=== PATIENT | female | born 1950 | race Caucasian/White ===

== ENCOUNTER 2018-07-15 10:35 | Emergency (ER) | payer OTHER, SELFPAY ==
[2018-07-15 10:41] VITALS: BP 131/103; PULSE 106; RESP 20; TEMP 36.6; O2SAT 93
--- NOTE | 2018-07-15 10:47 | W.ED.GENAD ---
Discharge Plan Disposition Patient Disposition: HOME Condition: Improving Discharge Details Chief Complaint: RespSymp Clinical Impression: Acute bronchitis with bronchospasm Primary Care Provider: Julio C Galarza ED Provider: Nishant Garcia Home Meds and New Rx's Prescriptions: New prednisone 20 mg tablet 40 mg PO DAILY 5 Days Qty: 10 RF: 0 doxycycline hyclate 100 mg capsule 100 mg PO BID 10 Days Qty: 20 RF: 0 Continued ibuprofen 200 MG tablet 600 mg PO PRN RF: 0 ProAir HFA 8.5 GM HFA aerosol inhaler 2 puff Inhalation Q4H PRN Qty: 3 RF: 6 calcium carbonate 500 MG tablet,chewable 500 mg PO DAILY RF: 0 montelukast 10 mg tablet 10 mg PO QPM Qty: 90 RF: 3 fluticasone 50 mcg/actuation spray,suspension 2 spray NS DAILY Qty: 3 RF: 3 amitriptyline 100 mg tablet 50 mg PO DAILY Qty: 90 RF: 3 donepezil [Aricept] 5 mg tablet 5 mg PO DAILY RF: 0 omeprazole 40 mg capsule,delayed release(DR/EC) 40 mg PO BID 90 Days Qty: 180 RF: 3 gabapentin 300 MG capsule 300 mg PO BID RF: 0 Discharge Instructions Instructions: Acute Bronchitis (ED) Additional Instructions: Do not take antibiotic with your calcium supplement. Take prednisone and antibiotic as prescribed. Followup with regular doctor for recheck in 7-10 days.. Medical Decision Making 68-year-old female with a history of COPD presents with cough and congestion with increased wheeze over 10-14 days time. She is afebrile and well-appearing with room air oxygenation 92% but exam does reveal bilateral end expiratory wheeze. Patient given DuoNeb updraft and referred for chest XR. Okay x-ray without focal infiltrate. She is improved following updraft We will treat for bronchitis with bronchospasm & will place on burst of steroid and Azithromycin given her allergy profile. She understands homecare as well as return precautions which were discussed with the patient and her at the bedside prior to DC. HPI General Mode of arrival: ambulatory. Date/Time Provider Initiated Documentation: 07/15/18 10:42. Limitations to Documentation: no limitations. Information obtained by: patient and family. History of Present Illness 68 year old F presents to the emergency department with the chief complaint of Cough and shortness of breath for 2, described as moderate, Quality is described as dull and constant, and is localized to the chest. Patient reports no radiation. Patient started experiencing this day(s) and it has been constant. No relieving factors improve symptom(s), No exacerbating factors reported . Patient notes cough and other (We). Patient did receive the following treatments prior to arrival, other (Home medication) Related Data Home Medications Medication Instructions Recorded Confirmed ibuprofen 600 mg PO PRN tab 01/05/16 07/15/18 ProAir HFA 2 puff INHALATION Q4H PRN #3 07/25/17 07/15/18 inhaler calcium carbonate 500 mg PO DAILY tab.chew 12/20/17 07/15/18 montelukast 10 mg tablet 10 mg PO QPM #90 tab 01/26/18 07/15/18 fluticasone 50 mcg/actuation nasal 2 spray NS DAILY #3 unit 02/22/18 07/15/18 spray,suspension amitriptyline 100 mg tablet 50 mg PO DAILY #90 tab 02/28/18 07/15/18 donepezil 5 mg tablet 5 mg PO DAILY 02/28/18 07/15/18 omeprazole 40 mg capsule,delayed 40 mg PO BID 90 Days #180 tab-cap 04/20/18 07/15/18 release doxycycline hyclate 100 mg PO BID 10 Days #20 cap 07/15/18 gabapentin 300 mg PO BID 07/15/18 07/15/18 prednisone 40 mg PO DAILY 5 Days #10 tab 07/15/18 Previous Rx's Medication Instructions Recorded ProAir HFA 2 puff INHALATION Q4H PRN #3 07/25/17 inhaler montelukast 10 mg tablet 10 mg PO QPM #90 tab 01/26/18 fluticasone 50 mcg/actuation nasal 2 spray NS DAILY #3 unit 02/22/18 spray,suspension omeprazole 40 mg capsule,delayed 40 mg PO BID 90 Days #180 tab-cap 04/20/18 release doxycycline hyclate 100 mg PO BID 10 Days #20 cap 07/15/18 prednisone 40 mg PO DAILY 5 Days #10 tab 07/15/18 Allergies Allergy/AdvReac Type Severity Reaction Status Date / Time Penicillins Allergy Intermediate Verified 07/15/18 10:44 flunisolide Allergy Unknown Verified 07/15/18 10:44 ipratropium Allergy Unknown Verified 07/15/18 10:44 levofloxacin Allergy Unknown Verified 07/15/18 10:44 morphine Allergy Unknown pt is not Verified 07/15/18 10:44 sure what happens if she takes morphine Sulfa (Sulfonamide Allergy Unknown Verified 07/15/18 10:44 Antibiotics) terbinafine Allergy Unknown Verified 07/15/18 10:44 trazodone Allergy Unknown Verified 07/15/18 10:44 cyclobenzaprine HCl 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 07/15/18 10:44 [From Flexeril] CONFUSION fluticasone furoate AdvReac Intermediate increased Verified 07/15/18 10:44 [From Breo Ellipta] wheeze vilanterol trifenatate AdvReac Intermediate increased Verified 07/15/18 10:44 [From Breo Ellipta] wheeze budesonide [From Symbicort] AdvReac Mild C/O Verified 07/15/18 10:44 BLURRED VISION formoterol fumarate AdvReac Mild C/O Verified 07/15/18 10:44 [From Symbicort] BLURRED VISION tramadol HCl [From Ultram] AdvReac Unknown PANIC Verified 07/15/18 10:44 ATTACK cerbinafine HCL Allergy Intermediate Uncoded 07/15/18 10:44 canine proteins Allergy Unknown Uncoded 07/15/18 10:44 cats Allergy Unknown Uncoded 07/15/18 10:44 SYMPATHOMIMETIC AGENTS Allergy Unknown Uncoded 07/15/18 10:44 General Stated Complaint: RespSymp SILVIANO: 3 Review of Systems Review of Systems 8 systems reviewed and otherwise neg PFSH Medical History Asthma Gastroesophageal reflux disease Migraine Nephrolithiasis (10/10/15) Obesity Polyp of colon diverticulosis Surgical History Appendectomy Colonoscopy - IV Sedation (04/25/03) Cystoscopy (11/09/15) Cystoscopy (12/25/15) Dilation and curettage Endoscopic Carpal Tunnel release Hernia Repair, Incisional (09/09/10) Release for de Quervain's tenosynovitis of hand Repair of umbilical hernia Repair, Rotator Cuff (~1996) Repair, Rotator Cuff (~2007) Replacement of total knee joint Spinal Fusion TRIPLE ARTHRODESIS (04/17/12) Tonsillectomy and adenoidectomy bilateral breast mass excisions partial plantar fasciectomy L w/excision of painful plantar nodule (11/14/12) tubal ligation Family History Mother Alzheimers disease Father Alzheimers disease [place] (myocardial infarction) Sister No problems noted. Sister No problems noted. Sister No problems noted. Sister No problems noted. Sister No problems noted. Sister No problems noted. Brother No problems noted. Brother No problems noted. Brother No problems noted. Brother No problems noted. Social History household members: spouse housing: house lives independently: Yes current occupational status: retired current gender identity: female what type of physical activity do you participate in: walking frequency: 1-2 times per week duration: 15-30 minutes/day Smoking and Tabacco status: Former Tobacco Use how long ago did patient quit smoking: smoking hx 3ppd [id number] alcohol intake: never History History Para 2 Hx # Term Pregnancies Multiple births Hx # Pregnancies Ectopic pregnancies AB induced Hx Number of Living Children AB spontaneous Exam Narrative Exam Narrative: GEN: awake, alert, oriented 3. Pleasant, well groomed, interactive. HEAD: Normocephalic, atraumatic ENT: Mucous membranes moist, oropharynx unremarkable, External ear exam unremarkable EYES: PERRL, EOMI NECK: Full ROM, no MORRIS, no menigismus CHEST/RESP: Nontender,bilateral end exp wheeze CARDIOVASCULAR: RRR, no murmur, rub trung. 2+ Rad pulse bilateral ABDOMEN: Soft, nontender, no mass. +Bowel sounds EXT: Full ROM, no edema, no rash Neuro: Grossly normal neurologic exam, conversant, interactive. Psych: Speech fluent, thoughts congruent, affect normal Course Vital Signs Temperature 36.6 C 07/15/18 10:41 Pulse 106 H 07/15/18 10:41 Respiratory Rate 20 07/15/18 10:41 Blood Pressure 131/103 H 07/15/18 10:41 Pulse Oximetry 93 L 07/15/18 10:41 Temperature 36.6 C 07/15/18 10:41 Temperature Source Skin 07/15/18 10:41 Pulse 106 H 07/15/18 10:41 Respiratory Rate 20 07/15/18 10:41 Respiratory Effort 07/15/18 10:41 Blood Pressure 131/103 H 07/15/18 10:41 Blood Pressure Position Sitting 07/15/18 10:41 Pulse Oximetry 93 L 07/15/18 10:41 Oxygen Delivery Method Room Air 07/15/18 10:41 Oxygen Flow Rate 0 07/15/18 10:41 Pain Level 8 07/15/18 10:41
--- NOTE | 2018-07-15 10:50 | ED.GENADUL_ITS ---
Discharge Plan Disposition Patient Disposition: HOME Condition: Improving Discharge Details Chief Complaint: RespSymp Clinical Impression: Acute bronchitis with bronchospasm Primary Care Provider: Julio C Galarza ED Provider: Nishant Garcia Home Meds and New Rx's Prescriptions: New prednisone 20 mg tablet 40 mg PO DAILY 5 Days Qty: 10 RF: 0 doxycycline hyclate 100 mg capsule 100 mg PO BID 10 Days Qty: 20 RF: 0 Continued ibuprofen 200 MG tablet 600 mg PO PRN RF: 0 ProAir HFA 8.5 GM HFA aerosol inhaler 2 puff Inhalation Q4H PRN Qty: 3 RF: 6 calcium carbonate 500 MG tablet,chewable 500 mg PO DAILY RF: 0 montelukast 10 mg tablet 10 mg PO QPM Qty: 90 RF: 3 fluticasone 50 mcg/actuation spray,suspension 2 spray NS DAILY Qty: 3 RF: 3 amitriptyline 100 mg tablet 50 mg PO DAILY Qty: 90 RF: 3 donepezil [Aricept] 5 mg tablet 5 mg PO DAILY RF: 0 omeprazole 40 mg capsule,delayed release(DR/EC) 40 mg PO BID 90 Days Qty: 180 RF: 3 gabapentin 300 MG capsule 300 mg PO BID RF: 0 Discharge Instructions Instructions: Acute Bronchitis (ED) Additional Instructions: Do not take antibiotic with your calcium supplement. Take prednisone and antibiotic as prescribed. Followup with regular doctor for recheck in 7-10 days.. Medical Decision Making 68-year-old female with a history of COPD presents with cough and congestion with increased wheeze over 10-14 days time. She is afebrile and well-appearing with room air oxygenation 92% but exam does reveal bilateral end expiratory wheeze. Patient given DuoNeb updraft and referred for chest XR. Okay x-ray without focal infiltrate. She is improved following updraft We will treat for bronchitis with bronchospasm & will place on burst of steroid and Azithromycin given her allergy profile. She understands homecare as well as return precautions which were discussed with the patient and her at the bedside prior to DC. HPI General Mode of arrival: ambulatory . Date/Time Provider Initiated Documentation: 07/15/18 10:42 . Limitations to Documentation: no limitations . Information obtained by: patient and family . History of Present Illness 68 year old F presents to the emergency department with the chief complaint of Cough and shortness of breath for 2, described as moderate, Quality is described as dull and constant, and is localized to the chest. Patient reports no radiation. Patient started experiencing this day(s) and it has been constant. No relieving factors improve symptom(s), No exacerbating factors reported . Patient notes cough and other (We). Patient did receive the following treatments prior to arrival, other (Home medication) Related Data Home Medications Medication Instructions Recorded Confirmed ibuprofen 600 mg PO PRN tab 01/05/16 07/15/18 ProAir HFA 2 puff INHALATION Q4H PRN #3 07/25/17 07/15/18 inhaler calcium carbonate 500 mg PO DAILY tab.chew 12/20/17 07/15/18 montelukast 10 mg tablet 10 mg PO QPM #90 tab 01/26/18 07/15/18 fluticasone 50 mcg/actuation nasal 2 spray NS DAILY #3 unit 02/22/18 07/15/18 spray,suspension amitriptyline 100 mg tablet 50 mg PO DAILY #90 tab 02/28/18 07/15/18 donepezil 5 mg tablet 5 mg PO DAILY 02/28/18 07/15/18 omeprazole 40 mg capsule,delayed 40 mg PO BID 90 Days #180 tab-cap 04/20/18 07/15/18 release doxycycline hyclate 100 mg PO BID 10 Days #20 cap 07/15/18 gabapentin 300 mg PO BID 07/15/18 07/15/18 prednisone 40 mg PO DAILY 5 Days #10 tab 07/15/18 Previous Rx's Medication Instructions Recorded ProAir HFA 2 puff INHALATION Q4H PRN #3 07/25/17 inhaler montelukast 10 mg tablet 10 mg PO QPM #90 tab 01/26/18 fluticasone 50 mcg/actuation nasal 2 spray NS DAILY #3 unit 02/22/18 spray,suspension omeprazole 40 mg capsule,delayed 40 mg PO BID 90 Days #180 tab-cap 04/20/18 release doxycycline hyclate 100 mg PO BID 10 Days #20 cap 07/15/18 prednisone 40 mg PO DAILY 5 Days #10 tab 07/15/18 Allergies Allergy/AdvReac Type Severity Reaction Status Date / Time Penicillins Allergy Intermediate Verified 07/15/18 10:44 flunisolide Allergy Unknown Verified 07/15/18 10:44 ipratropium Allergy Unknown Verified 07/15/18 10:44 levofloxacin Allergy Unknown Verified 07/15/18 10:44 morphine Allergy Unknown pt is not Verified 07/15/18 10:44 sure what happens if she takes morphine Sulfa (Sulfonamide Allergy Unknown Verified 07/15/18 10:44 Antibiotics) terbinafine Allergy Unknown Verified 07/15/18 10:44 trazodone Allergy Unknown Verified 07/15/18 10:44 cyclobenzaprine HCl AdvReac Intermediate 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 07/15/18 10:44 [From Flexeril] CONFUSION fluticasone furoate AdvReac Intermediate increased Verified 07/15/18 10:44 [From Breo Ellipta] wheeze vilanterol trifenatate AdvReac Intermediate increased Verified 07/15/18 10:44 [From Breo Ellipta] wheeze budesonide [From Symbicort] AdvReac Mild C/O Verified 07/15/18 10:44 BLURRED VISION formoterol fumarate AdvReac Mild C/O Verified 07/15/18 10:44 [From Symbicort] BLURRED VISION tramadol HCl [From Ultram] AdvReac Unknown PANIC Verified 07/15/18 10:44 ATTACK cerbinafine HCL Allergy Intermediate Uncoded 07/15/18 10:44 canine proteins Allergy Unknown Uncoded 07/15/18 10:44 cats Allergy Unknown Uncoded 07/15/18 10:44 SYMPATHOMIMETIC AGENTS Allergy Unknown Uncoded 07/15/18 10:44 General Stated Complaint: RespSymp SILVIANO: 3 Review of Systems Review of Systems 8 systems reviewed and otherwise neg PFSH Medical History Asthma Gastroesophageal reflux disease Migraine Nephrolithiasis (10/10/15) Obesity Polyp of colon diverticulosis Surgical History Appendectomy Colonoscopy - IV Sedation (04/25/03) Cystoscopy (11/09/15) Cystoscopy (12/25/15) Dilation and curettage Endoscopic Carpal Tunnel release Hernia Repair, Incisional (09/09/10) Release for de Quervain's tenosynovitis of hand Repair of umbilical hernia Repair, Rotator Cuff (~1996) Repair, Rotator Cuff (~2007) Replacement of total knee joint Spinal Fusion TRIPLE ARTHRODESIS (04/17/12) Tonsillectomy and adenoidectomy bilateral breast mass excisions partial plantar fasciectomy L w/excision of painful plantar nodule (11/14/12) tubal ligation Family History Mother Alzheimers disease Father Alzheimers disease [place] (myocardial infarction) Sister No problems noted. Sister No problems noted. Sister No problems noted. Sister No problems noted. Sister No problems noted. Sister No problems noted. Brother No problems noted. Brother No problems noted. Brother No problems noted. Brother No problems noted. Social History household members: spouse housing: house lives independently: Yes current occupational status: retired current gender identity: female what type of physical activity do you participate in: walking frequency: 1-2 times per week duration: 15-30 minutes/day Smoking and Tabacco status: Former Tobacco Use how long ago did patient quit smoking: smoking hx 3ppd [id number] alcohol intake: never History History Para 2 Hx # Term Pregnancies Multiple births Hx # Pregnancies Ectopic pregnancies AB induced Hx Number of Living Children AB spontaneous Exam Narrative Exam Narrative: GEN: awake, alert, oriented 3. Pleasant, well groomed, interactive. HEAD: Normocephalic, atraumatic ENT: Mucous membranes moist, oropharynx unremarkable, External ear exam unremarkable EYES: PERRL, EOMI NECK: Full ROM, no MORRIS, no menigismus CHEST/RESP: Nontender,bilateral end exp wheeze CARDIOVASCULAR: RRR, no murmur, rub trung. 2+ Rad pulse bilateral ABDOMEN: Soft, nontender, no mass. +Bowel sounds EXT: Full ROM, no edema, no rash Neuro: Grossly normal neurologic exam, conversant, interactive. Psych: Speech fluent, thoughts congruent, affect normal Course Vital Signs Temperature 36.6 C 07/15/18 10:41 Pulse 106 H 07/15/18 10:41 Respiratory Rate 20 07/15/18 10:41 Blood Pressure 131/103 H 07/15/18 10:41 Pulse Oximetry 93 L 07/15/18 10:41 Temperature 36.6 C 07/15/18 10:41 Temperature Source Skin 07/15/18 10:41 Pulse 106 H 07/15/18 10:41 Respiratory Rate 20 07/15/18 10:41 Respiratory Effort 07/15/18 10:41 Blood Pressure 131/103 H 07/15/18 10:41 Blood Pressure Position Sitting 07/15/18 10:41 Pulse Oximetry 93 L 07/15/18 10:41 Oxygen Delivery Method Room Air 07/15/18 10:41 Oxygen Flow Rate 0 07/15/18 10:41 Pain Level 8 07/15/18 10:41
--- NOTE | 2018-07-15 10:52 | DI.RAD_ITS ---
SYMPTOM/DIAGNOSIS: COUGH, CONGESTION PA AND LATERAL CHEST: Comparison is made with 11/08/15. The heart size is normal. The aorta is mildly tortuous but normal in diameter. The lungs are clear. No infiltrate or effusion is seen. Degenerative changes are noted in the spine. IMPRESSION: No acute abnormality.
[2018-07-15 11:01] VITALS: RESP 4
[2018-07-15] MEDS: Albuterol/Ipratropium 3 ML UPD VIAL (11:01)
[2018-07-15] MEDS: predniSONE 20 MG TAB 60 MG PO (11:01)
--- NOTE | 2018-07-15 11:42 | DI.VRAD_ITS ---
EXAM: XR Chest, 2 Views EXAM DATE/TIME: 07/15/2018 11:25 AM CLINICAL HISTORY: 68 years old, female; Signs and symptoms; Cough TECHNIQUE: XR of the chest, 2 views. COMPARISON: CR CHEST 2 VIEWS PA,LAT 11/08/2015 9:42 AM FINDINGS: Lungs: Stable mild COPD . Pleural space: Unremarkable. No pleural effusion. No pneumothorax. Heart/Mediastinum: Unremarkable. No cardiomegaly. Bones/joints: Stable postoperative changes over the right shoulder. Stable postoperative changes over the left shoulder. Mild thoracic spondylosis. IMPRESSION: Stable mild COPD . Dictated and Authenticated by: Bronson Nielsen MD. Ordering:CAL Dillard MD
[2018-07-15 11:59] VITALS: PULSE 96; RESP 18; TEMP 36.6; O2SAT 94
== END 2018-07-15 12:02 | disposition home or self-care (01) ==
LOC: ER 11:02
PROVIDERS: Emergency Provider Emergency Medicine; PCP Family Medicine
DX: J44.0 Chronic obstructive pulmonary disease with (acute) lower respiratory infection (principal); J20.9 Acute bronchitis, unspecified; J45.909 Unspecified asthma, uncomplicated; Z87.891 Personal history of nicotine dependence
CPT/HCPCS: 94640; 99283; 71046; J7512; J7620

== ENCOUNTER 2018-08-04 01:53 | Outpatient (CLI) | payer OTHER, SELFPAY ==
--- NOTE | 2018-08-04 14:15 | MERGE_ITS ---
*[facility]* *[facility]* [address] [place] [address] Date of study: 08/04/2018 Transthoracic Echocardiography M-mode, complete 2D, complete spectral Doppler, and color Doppler *STUDY CONCLUSIONS* Summary: 1. Left ventricle: The cavity size was normal. Wall thickness was increased in a pattern of mild LVH. Systolic function was hyperdynamic. The estimated ejection fraction was 65-70%. There was mild dynamic obstruction during Valsalva in the outflow tract, with a peak gradient of 19mm Hg. Wall motion was normal; there were no regional wall motion abnormalities. Findings consistent with diastolic dysfunction. There was no evidence of elevated ventricular filling pressure by Doppler parameters. 2. Aortic valve: Trileaflet; normal thickness leaflets. 3. Ascending aorta: The ascending aorta was mildly dilated. 4. Right ventricle: The cavity size was normal. Wall thickness was normal. Systolic function was normal. *PATIENT PRESENTATION* Height: 144.8cm ((57in) ) S/D Pressure: 1049 / 84 Weight: 97.1kg ((213.6lb) ) BSA: 2.04m^2 Test start time: 02:30 PM. Test stop time: 03:30 PM. PERFORMING Unknown PERFORMING [facility] PORT CRANE OPERATOR Jolene Caldwell RT (R)(CT), [facility] ORDERING Julio C Galarza REFERRING Julio C Galarza *PROCEDURE DATA* Procedure information: The patient was identified by two identifiers. This study was interpreted by [facility]. Pertinent images and digital data are archived for permanent storage and are available for subsequent review. No prior study was available for comparison. Study status: Routine. Transthoracic echocardiography. M-mode, complete 2D, complete spectral Doppler, and color Doppler. A Transthoracic Echocardiogram was performed. Scanning was performed from the parasternal, apical, subcostal, and suprasternal notch acoustic windows. Images were obtained using an [id number] cardiac ultrasound machine. Image quality was adequate. Study completion: The patient tolerated the procedure well. There were no complications. History: PMH: Chronic SOB. equivacable PFTs. dyspnea. R06.09 GARCÍA. *CARDIAC ANATOMY* Left ventricle: The cavity size was normal. Wall thickness was increased in a pattern of mild LVH. Systolic function was hyperdynamic. The estimated ejection fraction was 65-70%. There was mild dynamic obstruction during Valsalva in the outflow tract, with a peak gradient of 19mm Hg. Wall motion was normal; there were no regional wall motion abnormalities. Findings consistent with diastolic dysfunction. There was no evidence of elevated ventricular filling pressure by Doppler parameters. Aortic valve: Trileaflet; normal thickness leaflets. Mobility was not restricted. Doppler: Transvalvular velocity was within the normal range. There was no stenosis. There was no significant regurgitation. VTI ratio of LVOT to aortic valve: 0.83. Valve area (VTI): 2.2cm^2. Indexed valve area (VTI): 1.1cm^2/m^2. Peak velocity ratio of LVOT to aortic valve: 0.76. Valve area (Vmax): 2cm^2. Indexed valve area (Vmax): 1cm^2/m^2. Mean velocity ratio of LVOT to aortic valve: 0.83. Valve area (Vmean): 2.2cm^2. Indexed valve area (Vmean): 1.1cm^2/m^2. Mean gradient (S): 4.9mm Hg. Peak gradient (S): 8.9mm Hg. Aorta: Aortic root: The aortic root was normal in size. Ascending aorta: The ascending aorta was mildly dilated. Aortic arch: The aortic arch was normal in size. Mitral valve: Structurally normal valve. Mobility was not restricted. Doppler: Transvalvular velocity was within the normal range. There was no evidence for stenosis. There was no significant regurgitation. Valve area by pressure half-time: 4.1cm^2. Indexed valve area by pressure half-time: 2cm^2/m^2. Left atrium: The atrium was normal in size. Right ventricle: The cavity size was normal. Wall thickness was normal. Systolic function was normal. Pulmonic valve: The pulmonary valve appears to be grossly normal. Doppler: Transvalvular velocity was within the normal range. There was no evidence for stenosis. There was no significant regurgitation. Peak gradient (S): 4.8mm Hg. Tricuspid valve: Structurally normal valve. Doppler: Transvalvular velocity was within the normal range. There was no evidence for stenosis. There was no significant regurgitation. Pulmonary artery: Systolic pressure could not be accurately estimated. Right atrium: The atrium was normal in size. Pericardium: There was no pericardial effusion. Systemic veins: Inferior vena cava: Well visualized. The vessel was small, appearing collapsed, consistent with low central venous pressure. The respirophasic diameter changes were in the normal range (greater than or equal to 50%). Baseline ECG: Normal sinus rhythm. Measurements Left ventricle Value Reference LV ID, ED, PLAX 4.0 cm 3.5 - 6.0 LV ID, ES, PLAX 2.2 cm 2.1 - 4.0 LV PW thickness, ED, PLAX 1.1 cm LV end-diastolic volume, 1-p A2C 67 ml LV ejection fraction, 1-p A2C 80 % LV end-diastolic volume, 1-p A4C 63 ml LV ejection fraction, 1-p A4C 70 % LV e', lateral 0.084 m/sec LV E/e', lateral 7 LV e', medial 0.054 m/sec LV E/e', medial 11 LV e', average 0.069 m/sec LV E/e', average 8 Ventricular septum Value Reference IVS thickness, ED, PLAX 1.3 cm LVOT Value Reference LVOT ID, A-P 1.8 cm LVOT area 2.6 cm^2 LVOT peak velocity, S 1.13 m/sec LVOT mean velocity, S 0.88 m/sec LVOT VTI, S 19.1 cm LVOT peak gradient, S 5.1 mm Hg LVOT mean gradient, S 3.3 mm Hg Stroke volume (SV), LVOT DP 50 ml Stroke index (SV/bsa), LVOT DP 25 ml/m^2 Aortic valve Value Reference Aortic valve peak velocity, S 1.5 m/sec Aortic valve mean velocity, S 1.06 m/sec Aortic valve VTI, S 23.0 cm Aortic mean gradient, S 4.9 mm Hg Aortic peak gradient, S 8.9 mm Hg VTI ratio, LVOT/AV 0.83 Aortic valve area, VTI 2.2 cm^2 Velocity ratio, peak, LVOT/AV 0.76 Aortic valve area, peak velocity 2 cm^2 Velocity ratio, mean, LVOT/AV 0.83 Aortic valve area, mean velocity 2.2 cm^2 Aortic valve area/bsa, mean velocity 1.1 cm^2/m^2 Aorta Value Reference Aortic root ID, ED 3.6 cm Ascending aorta ID, A-P, S 3.8 cm Left atrium Value Reference LA ID, A-P, ES 2.6 cm LA ID/bsa, A-P 1.3 cm/m^2 <=2.2 LA area, ES, A4C 12.8 cm^2 8.8 - 23.4 LA area, ES, A2C 15 cm^2 LA volume/bsa, ES, 1-p A4C 17 ml/m^2 LA volume, ES, 2-p 34 ml LA volume/bsa, ES, 2-p 17 ml/m^2 LA/aortic root ratio 0.73 Mitral valve Value Reference Mitral E-wave peak velocity 0.57 m/sec Mitral A-wave peak velocity 0.92 m/sec Mitral deceleration time 184 ms 150 - 230 Mitral pressure half-time 53 ms Mitral E/A ratio, peak 0.62 Mitral valve area, PHT, DP 4.1 cm^2 Tricuspid valve Value Reference Tricuspid regurg peak velocity 3.5 m/sec Tricuspid peak RV-RA gradient 47.7 mm Hg Right atrium Value Reference RA area, ES, A4C 13.7 cm^2 8.3 - 19.5 Pulmonic valve Value Reference Pulmonic peak gradient, S 4.8 mm Hg Legend: (L) and (H) jonathan values outside specified reference range. I have personally reviewed the images and have reviewed and edited the reported findings. Electronically signed by Thierno Wilson 08/04/2018 15:59
== END 2018-08-04 02:13 ==
PROVIDERS: PCP Family Medicine; Visit Provider Family Medicine
DX: R06.02 Shortness of breath (principal); R06.09 Other forms of dyspnea; I50.30 Unspecified diastolic (congestive) heart failure; J44.9 Chronic obstructive pulmonary disease, unspecified
CPT/HCPCS: 93306

== ENCOUNTER 2018-08-08 10:20 | Outpatient (CLI) | payer OTHER, SELFPAY ==
[2018-08-08 11:37] LABS: Anion Gap 8.7 mmol/L (3-11); BUN 14 mg/dL (7-18); CO2 31.3 mmol/L (21.0-32.0); CREATININE 0.95 mg/dL (0.55-1.02); Calcium 9.5 mg/dL (8.5-10.1); Chloride 103 mmol/L (98-107); Estimated GFR 58.33 (mL/min/1.73m2); Glucose 121 mg/dL (70-100); Potassium 4.3 mmol/L (3.5-5.1); Sodium 143 mmol/L (136-145)
== END 2018-08-08 10:40 ==
PROVIDERS: PCP Family Medicine; Visit Provider Family Medicine
DX: R73.09 Other abnormal glucose (principal); R06.09 Other forms of dyspnea
CPT/HCPCS: 36415; 80048

== ENCOUNTER 2018-08-16 12:11 | Outpatient (RCR) | payer SELFPAY | END 2018-08-20 23:59 | disposition home or self-care (01) | LOC: CR 12:11 | PROVIDERS: PCP Family Medicine; Visit Provider Family Medicine | DX: Z51.89 Encounter for other specified aftercare (principal) ==

== ENCOUNTER 2018-08-29 00:44 | Outpatient (CLI) | payer OTHER, SELFPAY ==
--- NOTE | 2018-08-29 10:28 | DI.MAMMO_ITS ---
SYMPTOM/DIAGNOSIS: SCREENING, Z12.31 MAMMOGRAMS: Mammograms were interpreted according to the usual protocol including computer analysis with CAD system, tomosynthesis and C view imaging. Comparison is made with prior examinations. Breast density, Category A. No suspicious masses or microcalcifications are seen. There is no definite evidence of malignancy. IMPRESSION: Negative mammogram. Routine screening is recommended. Category 1. MQSA ASSESSMENT OF FINDINGS: Negative. Category 1. Patient will receive a letter notifying them of these results. BI-RAD category A. The breasts are almost entirely fatty.
== END 2018-08-29 01:04 ==
PROVIDERS: PCP Family Medicine; Visit Provider Family Medicine
DX: Z12.31 Encounter for screening mammogram for malignant neoplasm of breast (principal)
CPT/HCPCS: 77063; 77067

== ENCOUNTER 2018-09-19 10:00 | Outpatient (RCR) | payer SELFPAY ==
--- NOTE | 2018-08-22 10:00 | PR3E_ITS ---
Angelica Diallo is a 68 year old female referred to the cardiac rehabilitation maintenance exercise program by her primary provider, at [facility]. PMH: Migraines, Metabolic sybdrome, Kindney stones, neuropathy, GERD, ventral hernia, diabetes, insomnia, obesity, intrinsic asthma, memory disturbance Orthopedic history: bilateral rotator cuffs, bilateral joint replacements in knees, osteoarthrosis, wears orthodics Cardiac risk factors: +Age, +family history, +remote smoking history, +obesity, +sedentary lifestyle, +Diabetes Patient presented on 08/17/2018 with her for a pre program intake. Program consents and expectations were reviewed and signed by patients and her . She was alert and oriented at this time, she reported issues with short term memory at baseline. Her color was WNL, lungs clear bilaterally to posterior auscultation, heart sounds regular s1/s2 and baseline 1+ lower extremity edema was noted. Height 55in., weight 217 lbs, BMI 50.4, BP 121/79, HR 91, oxygen saturation 91% on room air. First day of exercise: 08/22/18. Resting vital signs: BP 125/710, HR 106, weight 216 lbs. She appropriately tolerated 20 minutes of exercise in 5 minute increments on the treadmill, NuStep, and arm bike. Vital signs with exercise 116-155/76-80, HR 100-106 bpm. CARMEN RPE ratings were 11-15. Will provide frequent and continuous assistance to patient as she will need help completing her daily exercise sheets. Will encourage continued progression with exercise as tolerated and exercise at home.
== END 2018-09-19 23:59 | disposition home or self-care (01) ==
LOC: CR 10:00
PROVIDERS: PCP Family Medicine; Visit Provider Family Medicine
DX: Z51.89 Encounter for other specified aftercare (principal)

== ENCOUNTER 2018-10-19 13:34 | Outpatient (RCR) | payer SELFPAY | END 2018-10-20 23:59 | disposition home or self-care (01) | LOC: CR 13:34 | PROVIDERS: PCP Family Medicine; Visit Provider Family Medicine | DX: Z51.89 Encounter for other specified aftercare (principal) ==

== ENCOUNTER 2018-11-16 11:25 | Outpatient (RCR) | payer SELFPAY | END 2018-11-19 23:59 | disposition home or self-care (01) | LOC: CR 11:25 | PROVIDERS: PCP Family Medicine; Visit Provider Family Medicine | DX: Z51.89 Encounter for other specified aftercare (principal) ==

== ENCOUNTER 2018-12-19 13:27 | Outpatient (RCR) | payer SELFPAY | END 2018-12-20 23:59 | disposition home or self-care (01) | LOC: CR 13:27 | PROVIDERS: PCP Family Medicine; Visit Provider Family Medicine | DX: Z51.89 Encounter for other specified aftercare (principal) ==

== ENCOUNTER 2019-01-18 10:00 | Outpatient (RCR) | payer SELFPAY | END 2019-01-20 23:59 | disposition home or self-care (01) | LOC: CR 10:00 | PROVIDERS: PCP Family Medicine; Visit Provider Family Medicine | DX: Z51.89 Encounter for other specified aftercare (principal) ==

== ENCOUNTER 2019-02-15 11:57 | Outpatient (RCR) | payer SELFPAY | END 2019-02-19 23:59 | disposition home or self-care (01) | LOC: CR 11:57 | PROVIDERS: PCP Family Medicine; Visit Provider Family Medicine | DX: Z51.89 Encounter for other specified aftercare (principal) ==

== ENCOUNTER 2019-03-06 09:00 | Outpatient (RCR) | payer SELFPAY | END 2019-03-22 23:59 | disposition home or self-care (01) | LOC: CR 09:00 | PROVIDERS: PCP Family Medicine; Visit Provider Family Medicine | DX: Z51.89 Encounter for other specified aftercare (principal) ==

== ENCOUNTER 2019-03-08 17:29 | Emergency (ER) | payer OTHER, SELFPAY ==
[2019-03-08 17:35] VITALS: BP 146/97; PULSE 81; RESP 16; TEMP 37; O2SAT 95
--- NOTE | 2019-03-08 17:47 | ED.GENADUL_ITS ---
Discharge Plan Disposition Patient Disposition: HOME Condition: Stable Discharge Details Chief Complaint: Nk/Back Pain Clinical Impression: Sciatica Primary Care Provider: Julio C Galarza ED Provider: Bronson Bojorquez Home Meds and New Rx's Prescriptions: New diazepam [Valium] 2 mg tablet 2 mg PO TID PRN (Reason: muscle spasm) Qty: 20 RF: 0 Continued fluticasone propion-salmeterol [Advair Diskus] 250-50 mcg/dose blister with device 1 inh IH Q12H Qty: 60 RF: 6 codeine-guaifenesin 10-100 mg/5 mL liquid 10 ml PO Q6H PRN (Reason: cough) Qty: 118 RF: 0 ibuprofen 200 MG tablet 600 mg PO PRN RF: 0 calcium carbonate 500 MG tablet,chewable 500 mg PO DAILY RF: 0 albuterol sulfate [ProAir HFA] 90 mcg/actuation HFA aerosol inhaler 2 puff Inhalation Q4H PRN Qty: 3 RF: 6 gabapentin 300 mg capsule 300 mg PO BID Qty: 180 RF: 3 fluticasone propionate 50 mcg/actuation spray,suspension 2 spray NS DAILY Qty: 3 RF: 3 montelukast 10 mg tablet 10 mg PO QPM Qty: 90 RF: 3 omeprazole 40 mg capsule,delayed release(DR/EC) 40 mg PO BID 90 Days Qty: 180 RF: 3 amitriptyline 100 mg tablet 25 mg PO DAILY Qty: 90 RF: 3 donepezil [Aricept] 5 mg tablet 5 mg PO DAILY Qty: 90 RF: 3 Discharge Instructions Instructions: Sciatica (ED) Additional Instructions: try using over the counter lidocaine patches follow up with your primary care provider within 1-2 weeks if you develop difficulty urinating, fevers or severe worsening of pain return to the emergency department Medical Decision Making 68 yo female comes in with one week of nontraumatic low back pain. She states it started one day without falls and has had shooting sensation down the posterior left leg. Denies fevers, difficulty urinating, weakness. She has painin left lumbar area with no saddle anesthesia, no midline pain, no cva tenderness, no weakness in the legs with normal senstaion and pulses. No findings on history or physical exam to suggest cauda equina or sea so do not feel emergent mri indicated. given lack of falls/trauma do not feel xray/ct indicated and has no infectious symptoms to suggest osteo. Her exam is consistent with either lumbar strain vs sciatica. will have her start muscle relaxers prn and lidocaine patches, advised f/u with pcp and return precautions given Differential Diagnosis Differential Diagnosis: back strain, muscle spasm, sciatica HPI General Mode of arrival: wheelchair . Date/Time Provider Initiated Documentation: 03/08/19 17:30 . Limitations to Documentation: no limitations . Information obtained by: patient . History of Present Illness 68 year old F presents to the emergency department with the chief complaint of low back pain, described as moderate, Quality is described as stabbing and aching, and is localized to the back. Patient started experiencing this week(s) (1) and it has been constant. No relieving factors improve symptom(s), No exacerbating factors reported . Patient did receive the following treatments prior to arrival, NSAID Related Data Home Medications Medication Instructions Recorded Confirmed ibuprofen 600 mg PO PRN tab 01/05/16 03/08/19 calcium carbonate 500 mg PO DAILY tab.chew 12/20/17 03/08/19 codeine 10 mg-guaifenesin 100 mg/5 10 ml PO Q6H PRN #118 ml 07/18/18 03/08/19 mL oral liquid albuterol sulfate 90 mcg/actuation 2 puff INHALATION Q4H PRN #3 10/03/18 03/08/19 aerosol inhaler inhaler gabapentin 300 mg capsule 300 mg PO BID #180 cap 10/09/18 03/08/19 fluticasone propionate 50 2 spray NS DAILY #3 unit 01/04/19 03/08/19 mcg/actuation nasal spray,suspension montelukast 10 mg tablet 10 mg PO QPM #90 tab 01/04/19 03/08/19 omeprazole 40 mg capsule,delayed 40 mg PO BID 90 Days #180 tab-cap 01/04/19 03/08/19 release amitriptyline 100 mg tablet 25 mg PO DAILY #90 tab 01/08/19 03/08/19 donepezil 5 mg tablet 5 mg PO DAILY #90 tab 01/08/19 03/08/19 fluticasone 250 mcg-salmeterol 50 1 inh IH Q12H #60 each 02/08/19 03/08/19 mcg/dose blistr powdr for inhalation diazepam [Valium] 2 mg PO TID PRN #20 tab 03/08/19 Previous Rx's Medication Instructions Recorded codeine 10 mg-guaifenesin 100 mg/5 10 ml PO Q6H PRN #118 ml 07/18/18 mL oral liquid albuterol sulfate 90 mcg/actuation 2 puff INHALATION Q4H PRN #3 10/03/18 aerosol inhaler inhaler gabapentin 300 mg capsule 300 mg PO BID #180 cap 10/09/18 fluticasone propionate 50 2 spray NS DAILY #3 unit 01/04/19 mcg/actuation nasal spray,suspension montelukast 10 mg tablet 10 mg PO QPM #90 tab 01/04/19 omeprazole 40 mg capsule,delayed 40 mg PO BID 90 Days #180 tab-cap 01/04/19 release amitriptyline 100 mg tablet 25 mg PO DAILY #90 tab 01/08/19 donepezil 5 mg tablet 5 mg PO DAILY #90 tab 01/08/19 fluticasone 250 mcg-salmeterol 50 1 inh IH Q12H #60 each 02/08/19 mcg/dose blistr powdr for inhalation diazepam [Valium] 2 mg PO TID PRN #20 tab 03/08/19 Allergies Allergy/AdvReac Type Severity Reaction Status Date / Time Penicillins Allergy Severe listed as Verified 03/08/19 17:38 [place] [facility] [place]a (Sulfonamide Allergy Severe Anaphylaxis Verified 03/08/19 17:38 Antibiotics) per [facility] [place] flunisolide Allergy Unknown unknown Verified 03/08/19 17:38 ipratropium Allergy Unknown Verified 03/08/19 17:38 levofloxacin Allergy Unknown Verified 03/08/19 17:38 morphine Allergy Unknown pt is not Verified 03/08/19 17:38 sure what happens if she takes morphine terbinafine Allergy Unknown unknown Verified 03/08/19 17:38 trazodone Allergy Unknown Verified 03/08/19 17:38 cyclobenzaprine HCl AdvReac Intermediate [employer] Verified 03/08/19 17:38 [From Flexeril] CONFUSION fluticasone furoate AdvReac Intermediate increased Verified 03/08/19 17:38 [From Breo Ellipta] wheeze vilanterol trifenatate AdvReac Intermediate increased Verified 03/08/19 17:38 [From Breo Ellipta] wheeze budesonide [From Symbicort] AdvReac Mild C/O Verified 03/08/19 17:38 BLURRED VISION formoterol fumarate AdvReac Mild C/O Verified 03/08/19 17:38 [From Symbicort] BLURRED VISION tramadol HCl [From Ultram] AdvReac Unknown PANIC Verified 03/08/19 17:38 ATTACK cerbinafine HCL Allergy Intermediate unknown Uncoded 03/08/19 17:38 canine proteins Allergy Unknown unknown Uncoded 03/08/19 17:38 cats Allergy Unknown unknown Uncoded 03/08/19 17:38 SYMPATHOMIMETIC AGENTS Allergy Unknown unknown Uncoded 03/08/19 17:38 General Stated Complaint: Nk/Back Pain SILVIANO: 4 Review of Systems Review of Systems ROS Unobtainable: All systems reviewed & are unremarkable except as noted in HPI and below Constitutional Constitutional: Denies chills, Denies fever(s) and Denies weakness Cardiovascular Cardiovascular: Denies chest pain and Denies dyspnea Respiratory Respiratory: Denies cough and Denies dyspnea Gastrointestinal Gastrointestinal: Denies abdominal pain, Denies nausea and Denies vomiting Musculoskeletal Musculoskeletal: Denies joint swelling Neurologic Neurologic: Denies weakness [facility] Medical History (Updated 02/08/19 @ 08:31 by Julio C Galarza DO) Asthma Asthma, mild intermittent, well-controlled (Chronic) h/o 3 PPD, STOPPED SMOKING 1973; NO WHEEZING Last PFTs : normal, no chg bronchodilator; sl incr DLCO, ?due to GERD; worse with URI, cold weather, hot weather Asthma, moderate persistent (Acute) Disturbance of memory (Chronic 03/29/17) MOCA 18 (03/2017) diverticulosis Gastroesophageal reflux disease GERD (gastroesophageal reflux disease) (Chronic 04/15/14) with laryngeal inflammation, hoarseness, ENT FA Idiopathic peripheral neuropathy (Chronic 09/14/11) Intrinsic asthma, unspecified (Chronic) h/o 3 PPD, STOPPED SMOKING 1973; NO WHEEZING Last PFTs : normal, no chg bronchodilator; sl incr DLCO, ?due to GERD Kidney stone on left side (Chronic 11/21/15) [place] [facility] [place], 11/27/15, stent 12/25/15; CaOxalate Monophosphate Metabolic syndrome X (Chronic 09/14/11) Migraine Migraine, unspecified, not intractable, without status migrainosus (Chronic 09/14/11) Dr Pizarro [facility] [place] Morbid obesity (Chronic 06/23/11) Nephrolithiasis (10/10/15) Obesity Pes planus of both feet (Chronic 03/29/16) Polyp of colon TUBULAR ADENOMA Post herpetic neuralgia (Chronic 09/10/16) right face Surgical History (Updated 09/05/18 @ 09:55 by Karen Casas RN) Appendectomy 2006 with hernia repair bilateral breast mass excisions 2010 Colonoscopy - IV Sedation (04/25/03) no polyps 06/13/13-TUBULAR ADENOMA Cystoscopy (11/09/15[place] [facility] [place] placement 11/09/15 Again stent placement 12/24 Cystoscopy (12/25/15) [facility] [place] stent placement 11/09/15 Again stent placement 12/24 Dilation and curettage 1980 Endoscopic Carpal Tunnel release bilateral in 1990 Hernia Repair, Incisional (09/09/10) laparoscopic w/mesh partial plantar fasciectomy L w/excision of painful plantar nodule (11/14/12) Dr Barney Release for de Quervain's tenosynovitis of hand right side 1990 Repair of umbilical hernia 2010 Repair, Rotator Cuff (~1996) left in 2007; R 1996 Repair, Rotator Cuff (~2007) left in 2007; R 1996 Replacement of total knee joint 2000 left knee; 2004 right knee S/P BRENDA (total abdominal hysterectomy) (Resolved) Spinal Fusion thoracic with bone grafting in 1997 Tonsillectomy and adenoidectomy 1969 TRIPLE ARTHRODESIS (04/17/12) AMAIRANI, FOR ADULT FLAT FOOT; Left tubal ligation 1980 Social History (Updated 02/08/19 @ 08:22 by Sera Lyon LPN) Smoking/Tobacco Use Status: Former Tobacco Use Alcohol Intake: never Drug use: Never Household members: spouse Housing: house Current gender identity: female What is your relationship status?: How often do you talk on the phone with friends or family?: three or more times per week Panel score (0-1 are the most socially isolated patients): 2 What type of physical activity do you participate in: none Duration: 60-90 minutes/day Frequency: 1-2 times per week Seatbelt use: always Drive intox or ride w/intox short haul driver: No Working smoke detector in home: Yes Fire extinguisher in home: Yes Carbon monox detector in home: Yes Do you feel safe at home: Yes Do you feel safe in your relationship?: Yes History History Para 2 Hx # Term Pregnancies Multiple births Hx # Pregnancies Ectopic pregnancies AB induced Hx Number of Living Children AB spontaneous Exam Const General: no acute distress Orientation: alert HENMT Head: normal to inspection Ears: external ears normal General nose exam: external nose normal Mouth: moist mucous membranes Eyes General: appearance normal, both eyes and all related structures Neck Neck: normal visual inspection Resp Effort & Inspection: normal respiratory effort and able to speak in complete sentences Cardio Rate: regular rate Back/Spine/Pelvis Back: no CVA tenderness Skin General skin exam: no rashes or lesions noted Neuro General: alert and oriented x3 Extrem General: normal to inspection Psych Mental Status: mental status grossly normal Course Vital Signs Vital signs: Vital Signs Temperature 37.0 C 03/08/19 17:35 Pulse 81 03/08/19 17:35 Respiratory Rate 16 03/08/19 17:35 Blood Pressure 146/97 H 03/08/19 17:35 Pulse Oximetry 95 03/08/19 17:35 Temperature 37.0 C 03/08/19 17:35 Temperature Source Temporal Artery Scan 03/08/19 17:35 Pulse 81 03/08/19 17:35 Respiratory Rate 16 03/08/19 17:35 Respiratory Effort 03/08/19 17:35 Blood Pressure 146/97 H 03/08/19 17:35 Blood Pressure Position Sitting 03/08/19 17:35 Pulse Oximetry 95 03/08/19 17:35 Oxygen Delivery Method Room Air 03/08/19 17:35 Oxygen Flow Rate 0 03/08/19 17:35 Pain Level 10 03/08/19 17:35
[2019-03-08] MEDS: Lidocaine 5% Patch 1 PATCH (17:57)
== END 2019-03-08 18:02 | disposition home or self-care (01) ==
PROVIDERS: Emergency Provider Emergency Medicine; PCP Family Medicine
DX: M54.42 Lumbago with sciatica, left side (principal)
CPT/HCPCS: 99283

== ENCOUNTER 2019-03-23 05:44 | Outpatient (RCR) | payer SELFPAY | END 2019-04-21 23:59 | disposition home or self-care (01) | LOC: CR 05:44 | PROVIDERS: PCP Family Medicine; Visit Provider Family Medicine | DX: Z51.89 Encounter for other specified aftercare (principal) ==

== ENCOUNTER 2019-04-22 23:43 | Outpatient (RCR) | payer SELFPAY ==
--- NOTE | 2019-05-11 12:18 | PR3E_ITS ---
69 year old female joined the maintenance phase of cardiac rehabilitation on August 22, 2018 after being referred for exertional dyspnea and cardiac risk factors: obesity and diabetes. The patient has attended classes August-February. The patient is being discharged from the program at this time due to ongoing medical issues; back pain. Will assist patient in re-enrolling in the program and obtaining proper referrals in the future should she want to return.
== END 2019-05-22 23:59 | disposition home or self-care (01) ==
LOC: CR 23:43
PROVIDERS: PCP Family Medicine; Visit Provider Family Medicine
DX: Z51.89 Encounter for other specified aftercare (principal)

== ENCOUNTER 2019-06-26 15:00 | Outpatient (CLI) | payer OTHER, SELFPAY ==
[2019-06-26 16:24] LABS: ESR 16 mm/hr (0-30)
== END 2019-06-26 15:20 ==
PROVIDERS: PCP Family Medicine; Visit Provider Psychiatry & Neurology Neurology
DX: G43.019 Migraine without aura, intractable, without status migrainosus (principal)
CPT/HCPCS: 36415; 85652

== ENCOUNTER 2020-03-04 09:43 | Outpatient (REF) | payer OTHER, SELFPAY ==
[2020-03-04 19:06] LABS: Anion Gap 9.1 mmol/L (3-11); BUN 17 mg/dL (7-18); CO2 28.9 mmol/L (21.0-32.0); CREATININE 0.86 mg/dL (0.55-1.02); Calcium 9.2 mg/dL (8.5-10.1); Calculated LDL 116 mg/dL (<100); Chloride 104 mmol/L (98-107); Cholesterol 188 mg/dL (<200); Glucose 112 mg/dL (74-106); HDL Cholesterol 54 mg/dL (40-60); Sodium 142 mmol/L (136-145); Triglyceride 93 mg/dL (<150)
== END 2020-03-04 10:03 ==
LOC: LBO 09:43
PROVIDERS: PCP Family Medicine; Referring Provider Family Medicine; Visit Provider Family Medicine
DX: E66.01 Morbid (severe) obesity due to excess calories (principal)
CPT/HCPCS: 80048; 80061

== ENCOUNTER 2020-10-09 02:03 | Outpatient (CLI) | payer OTHER, SELFPAY ==
--- NOTE | 2020-10-09 | DI.US_ITS ---
Exam(s) US RENAL EXAM: US RENAL CLINICAL HISTORY: LT SIDED KIDNEY STONE, N20.0 TECHNIQUE: Ultrasound of both kidneys performed using standard protocol. COMPARISON: US Cardiac from 08/04/2018 FINDINGS: RIGHT KIDNEY: Measures 10.6 cm in length. There is a 1.9 x 1.9 cm cyst in the inferior pole. Normal cortical thick ness and corticomedullary differentiation .No solid masses No intrarenal calculi nor hydronephrosis. LEFT KIDNEY: Measures 9.0 cm in length. No cysts evident. Normal cortical thickness and corticomedullary differen tiaion. No solids masses. No intrarenal calculi nor hydonephrosis. URINARY BLADDER: Not studied. Inadequate preparation. IMPRESSION: 1. There is a 19 x 19 millimeter benign cyst in the inferior pole of the right kidney. No other foc al renal findings. No hydronephrosis 2. Bladder was not able to be studied as it was empty. DATA REPOSITORY:
== END 2020-10-09 02:23 ==
PROVIDERS: PCP Family Medicine; Visit Provider Urology
DX: N20.0 Calculus of kidney (principal)
CPT/HCPCS: 76770

== ENCOUNTER 2020-11-19 13:34 | Emergency (ER) | payer OTHER, SELFPAY ==
[2020-11-19] VITALS (14 sets, daily range): BP systolic 122–143; BP diastolic 64–106; PULSE 68–85; RESP 18; TEMP 36.6–37.1; O2SAT 93–96
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
[2020-11-19] MEDS: oxyCODONE 5 mg/Acetaminophen 325 mg TAB 4 TAB PO (15:56)
== END 2020-11-19 15:59 | disposition home or self-care (01) ==
PROVIDERS: Emergency Provider Registered Nurse Emergency; PCP Family Medicine
DX: G89.11 Acute pain due to trauma (principal)
CPT/HCPCS: 99283; 71046

== ENCOUNTER 2021-03-12 02:45 | Outpatient (CLI) | payer OTHER, SELFPAY ==
[2021-03-12 11:49] LABS: Anion Gap 8.2 mmol/L (3-11); BUN 15 mg/dL (7-18); CO2 29.8 mmol/L (21.0-32.0); CREATININE 0.9 mg/dL (0.55-1.02); Calcium 9.6 mg/dL (8.5-10.1); Chloride 104 mmol/L (98-107); Glucose 110 mg/dL (74-106); Potassium 4.4 mmol/L (3.5-5.1); Sodium 142 mmol/L (136-145)
== END 2021-03-12 02:46 | disposition home or self-care (01) ==
LOC: LBO 02:45
PROVIDERS: PCP Family Medicine; Visit Provider Family Medicine
DX: E88.81 Metabolic syndrome and other insulin resistance (principal)
CPT/HCPCS: 36415; 80048

== ENCOUNTER 2021-04-08 00:58 | Outpatient (CLI) | payer MEDICARE, SELFPAY ==
--- NOTE | 2021-04-08 | DI.US_ITS ---
Exam(s) US BREAST RT LIMITED MG MAMMO SCREENING 60 MIN DUR EXAM: US BREAST RT LIMITED CLINICAL HISTORY: breast cancer screening, microcalcifications TECHNIQUE: Ultrasound performed using standard protocol. COMPARISON: No exams were available for comparison FINDINGS: Today's mammogram is interpreted in conjunction with right breast ultrasound and additional mammograp hic views of the right breast. The breasts are of moderate density with fairly symmetrical distribution of fibroglandular tissue. N o dominant mass is identified in either breast. In the upper outer quadrant of the right breast, there are a couple of large calcifications with kristine gn appearance. Associated with the more posteriorly located of these benign-appearing calcifications is grouping of new somewhat pleomorphic microcalcifications which were not present on prior mammogra ms including August 2018. Magnification views confirm the pleomorphism in the multiple new microcalci fications. Breast ultrasound of the upper outer quadrant right breast shows no evidence of a mass or cyst calcifications are not identified ultrasound examination. No other significant change in appearance in comparison with prior studies. IMPRESSION: Suspicious microcalcifications of the upper outer quadrant of the right breast as described above. B iopsy is recommended, please note that this area was not identified ultrasonographically so stereotac tic biopsy would be recommended. BI-RADS Cat 4 - Suspicious Abnormality: Biopsy should be considered Breast Density - Category B - Scattered areas of fibroglandular density DATA REPOSITORY:
== END 2021-04-08 01:18 ==
PROVIDERS: PCP Family Medicine; Visit Provider Family Medicine
DX: Z12.31 Encounter for screening mammogram for malignant neoplasm of breast (principal); R92.8 Other abnormal and inconclusive findings on diagnostic imaging of breast; R92.0 Mammographic microcalcification found on diagnostic imaging of breast
CPT/HCPCS: 76642; 77063; 77067

== ENCOUNTER → 2022-04-09 00:43 | Outpatient (CLI) | payer MEDICARE, SELFPAY ==
--- NOTE | 2022-04-09 11:00 | DI.MAMMO_ITS ---
Exam(s) MG MAMMO SCREENING 60 MIN DUR EXAM: MG MAMMO SCREENING 60 MIN DUR CLINICAL HISTORY: breast cancer screening,z12.39. TECHNIQUE: Bilateral full field digital CC and MLO mammographic images were obtained with 3D tomosyn thesis and utilizing computer aided detection (CAD). COMPARISON: Prior mammograms were reviewed. FINDINGS: There has been no significant change in the appearance and distribution of the fibroglandular tissue. There are no new spiculated masses nor new malignant appearing microcalcification groups. There is no significant architectural distortion nor skin thickening-retraction. IMPRESSION: No radiographic evidence of malignancy. Benign findings. BI-RADS Category 2 - Benign Findings Breast Density - Category B - Scattered areas of fibroglandular density Breast density Category C or D implies that the patient has dense breast tissue. Dense breast tissue can make it harder to find cancer on a mammogram. Dense breast tissue is also associated with an incr eased risk of breast cancer. This information about the result of the mammogram report was provided to the patient to raise their awareness. Use this report when you speak with the patient about their risks for breast cancer, which includes their family history. At that time, you may recommend additional screening tests (Ultrasoun d or MRI) as these tests may add significant information. A negative radiographic report should not delay biopsy if a dominant or clinically suspicious mass is present. Up to ten percent of cancers are not identified on mammography. A negative report may reinforce clinical impression. Adenosis and dense breasts may obscure an underlying neoplasm. False positive reports average 6 to 10%. Patient will receive a letter notifying them of these results.
== END ==
PROVIDERS: PCP Family Medicine; Visit Provider Family Medicine
DX: Z12.31 Encounter for screening mammogram for malignant neoplasm of breast (principal)
CPT/HCPCS: 77063; 77067

== ENCOUNTER 2022-05-02 12:13 | Emergency (ER) | payer MEDICARE, MEDICAID, SELFPAY ==
[2022-05-02 12:27] VITALS: BP 142/99; PULSE 88; RESP 20; TEMP 37.5; O2SAT 94
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
[2022-05-02 13:30] VITALS: RESP 20
== END 2022-05-02 13:33 | disposition home or self-care (01) ==
PROVIDERS: Emergency Provider Emergency Medicine; PCP Family Medicine
DX: K11.21 Acute sialoadenitis (principal)
CPT/HCPCS: 99281

== ENCOUNTER 2022-07-01 01:45 | Outpatient (CLI) | payer MEDICARE, MEDICAID, SELFPAY ==
[2022-07-01 11:14] LABS: Anion Gap 10.4 mmol/L (3-11); BUN 13 mg/dL (7-18); CO2 26.6 mmol/L (21.0-32.0); Calcium 9.9 mg/dL (8.5-10.1); Chloride 103 mmol/L (98-107); Estimated GFR 59.49 (mL/min/1.73m2); Glucose 103 mg/dL (74-106); Sodium 140 mmol/L (136-145)
== END 2022-07-01 01:46 | disposition home or self-care (01) ==
PROVIDERS: PCP Family Medicine; Visit Provider Family Medicine
DX: R73.9 Hyperglycemia, unspecified (principal)
CPT/HCPCS: 36415; 80048

== ENCOUNTER 2022-12-16 17:42 | Outpatient (REF) | payer OTHER, MEDICAID, SELFPAY ==
[2022-12-16 18:32] LABS: Bilirubin Negative (Negative); Blood Negative (Negative); Clarity Turbid (Clear); Glucose Negative (Negative); Ketones 15 mg/dL (Negative); Leukocyte Esterase Small (Negative); Nitrite Positive (Negative); Specific Gravity >= 1.030 (1.005-1.025); pH 5.5 (5-8)
[2022-12-16 18:41] LABS: C & S Indicated? Yes; Crystals Many Amorphous HPF (Negative)
== END 2022-12-16 17:43 | disposition home or self-care (01) ==
LOC: LBN 17:42
PROVIDERS: PCP Family Medicine; Visit Provider Nurse Practitioner Family
DX: R35.0 Frequency of micturition (principal); B96.29 Other Escherichia coli [E. coli] as the cause of diseases classified elsewhere
CPT/HCPCS: 87077; 81003; 81015; 87086; 87186